=== PATIENT | female | born 1940 | race American Indian/Alaskan Native ===

== ENCOUNTER 2018-01-17 09:49 | Outpatient (CLI) | payer MEDICARE ==
--- NOTE | 2018-01-19 08:20 | Magnetic Resonance Report ---
MRI THORACIC SPINE WITHOUT CONTRAST INDICATION: Postlaminectomy syndrome of lumbar region. Chronic opiate use. COMPARISON: None similar at this institution. FINDINGS: Noncontrast axial and sagittal T1 and T2-weighted MRI of the thoracic spine performed. Utility Bill Complaints Investigator views demonstrate multilevel cervical spine degenerative changes as spurring, disc degeneration/bulges as also possible "block" appearance of C5 and C6 with severely narrowed or rudimentary intervening disc. Mild thoracic levoscoliosis apex about T7-T8 also noted. Approximately 1 cm T8 and T9 possible hemangiomas. Otherwise normal thoracic spine vertebral body stature, alignment and marrow signal. Mid thoracic disc degeneration at few levels incidentally noted. Few small diffuse disc bulges noted as at T8-T9, [id number] with partial ventral CSF effacement or approaching the cord ventrally. Thoracic cord otherwise fairly well surrounded by CSF. Normal thoracic cord signal. Conus medullaris appears to terminate about L1. No abnormal paraspinal mass. Slight subcutaneous midline edema posteriorly noted about L1-L2 levels as on sagittal series 5, image 10. Slight L2 and L3 signal heterogeneity/Modic type changes may be noted with some endplate irregularities/sclerosis, severe disc narrowing and a diffuse disc bulge with mild to moderate spinal stenosis and left more than right neural foraminal narrowing suspected as on sagittal series 3. CONCLUSION: 1. Mild multilevel thoracic spine degenerative changes, overall age-appropriate, as detailed above. 2. However, severe L2-L3 degenerative changes with spinal and neural foraminal narrowing suspected, as described. Dedicated lumbar spine MRI may be further informative, if warranted. 3. Other findings, including multilevel cervical spine degenerative changes. Thank you for the opportunity to participate in this patient's care.
== END 2018-01-17 09:50 | disposition home or self-care (01) ==
LOC: MRI 09:49
PROVIDERS: ATTEND Pain Medicine Interventional Pain Medicine
DX: M47.894 Other spondylosis, thoracic region (principal); M47.892 Other spondylosis, cervical region; M41.84 Other forms of scoliosis, thoracic region; I10 Essential (primary) hypertension; E78.00 Pure hypercholesterolemia, unspecified; M19.90 Unspecified osteoarthritis, unspecified site; Z79.899 Other long term (current) drug therapy
CPT/HCPCS: 72146